=== PATIENT | female | born 1960 | race Caucasian/White ===

== ENCOUNTER 2017-03-18 20:42 | Emergency (ER) | payer SELFPAY ==
--- NOTE | 2017-03-18 21:35 | EDPHY ---
HPI/HX/ROS/PE/MDM Narrative: CHIEF COMPLAINT: Upper respiratory infection. HISTORY OF PRESENT ILLNESS: This patient is a 56 year old female arriving with her complaining of itchy watery eyes, dry cough, and congestion onset six days ago. She also reports hoarse voice. Her at bedside reports he is ill with upper respiratory complaints as well. She states has been treating her cough with Ventolin. She states she has had dry eyes for the last six months, but they have been bothering her more in the last week and she endorses crusty discharge. No fever, chills, chest pain, palpitations, vomiting, diarrhea, urinary complaints, headache, lightheadedness. REVIEW OF SYSTEMS: Aside from elements discussed in the HPI, a comprehensive 10-point review of systems was reviewed and is negative. PAST MEDICAL HISTORY: Asthma (Ventolin) SOCIAL HISTORY: Visiting daughter. Originally from [place]. VITAL SIGNS: Reviewed by me GENERAL: Well-developed, well-nourished, resting comfortably in no respiratory distress. She has a very hoarse voice. HEENT: Atraumatic. Eyes: Bilateral injection. No icterus. Mouth: moist mucous membranes. Mild pharyngeal erythema. No exudates or lesions. Neck: supple with no adenopathy. LUNGS: Coarse breath sounds but clear to auscultation bilaterally. No rhonchi, wheezes, or rales. CARDIAC: Regular rate and rhythm, no rubs, murmurs or gallops. ABDOMEN: Soft, nontender, nondistended, bowel sounds normal. BACK: No CVA tenderness. EXTREMITIES: No trauma. No edema. Range of motion is normal throughout. NEURO: Alert and oriented, grossly nonfocal. SKIN: Warm and dry, no rash. PSYCHIATRIC: Normal mentation, no agitation. Portions of this note were transcribed by a medical dir. I personally performed a history, physical exam, medical decision making, and confirmed accuracy of information the transcribed note. ED Course: This patient is a 56 year old female presenting with six day history of upper respiratory symptoms and asthma exacerbation. Physical exam reveals signs of conjunctivitis, a very hoarse voice, and clear lungs. Plan for chest x-ray, flu and strep screen. Plan to administer 60mg PO Prednisone, Ofloxacin eye drops , and Albuterol nebulizer. Chest x-ray shows mild bronchitis and airway disease, no focal pneumonia. Following the neb treatment with albuterol patient is coughing frequently. She is moving good air and has an occasional wheeze. She was treated with a DuoNeb. Plan to discharge home in good condition with prescriptions for Prednisone, ofloxacin eye drops, and Tessalon Perles, as well as instructions for further OTC treatments. Return precautions discussed. The patient and her are comfortable with this plan. MDM: Differential diagnosis for the patient's symptom complex was considered including but not limited to viral versus bacterial bronchitis, asthma, upper respiratory infection, lower respiratory infection, and bronchospasm. - Data Points Imaging Results: Imaging Impressions Chest X-Ray 03/18/17 21:14 Impression: 1. Mild bronchitis/airways disease. 2. No focal pneumonia. Imaging: I viewed and interpreted images myself Laboratory Results: 03/18/17 03/18/17 03/18/17 Unknown 21:15 21:15 Influenza A & B (PCR) NEGATIVE FOR FLU (NEGATIVE) Influenza A,B Rapid Group A Strep Screen NEGATIVE (NEGATIVE) Group A Strep DNA Pending 03/18/17 03/18/17 21:15 21:15 Influenza A & B (PCR) Influenza A,B Rapid Cancelled Group A Strep Screen Cancelled Group A Strep DNA Medications Given: Discontinued Medications Albuterol (Proventil Neb) 3 ml IH EDNOW ONE Stop: 03/18/17 21:56 Last Admin: 03/18/17 22:01 Dose: 3 ml Albuterol/Ipratropium (Duoneb) 3 ml IH EDNOW ONE Stop: 03/18/17 22:44 Last Admin: 03/18/17 22:45 Dose: 3 ml Ofloxacin (Ocuflox 0.3% Opht Drops Prepack) 1 btl TAKEHOME EDNOW ONE Stop: 03/18/17 22:26 Last Admin: 03/18/17 22:45 Dose: 1 btl Prednisone (Prednisone) 60 mg PO EDNOW ONE Stop: 03/18/17 22:26 Last Admin: 03/18/17 22:45 Dose: 60 mg General Time Seen by Provider: 03/18/17 21:21 Initial Vital Signs: Initial Vital Signs Temperature (C) 36.9 C 03/18/17 20:50 Heart Rate 77 03/18/17 20:50 Respiratory Rate 16 03/18/17 20:50 Blood Pressure 153/68 H 03/18/17 20:50 O2 Sat (%) 95 03/18/17 20:50 O2 Delivery Mode Room Air Allergies/Adverse Reactions: codeine Allergy (Verified 03/18/17 20:55) Other-Enter Comments Sulfa (Sulfonamide Antibiotics) Allergy (Verified 03/18/17 20:56) Red Man Syndrome Home Medications: Medication Instructions Recorded Amlodipine Besylate 03/18/17 Benzonatate [Tessalon Pearles (RX)] 100 mg PO TID PRN #20 cap 03/18/17 Ventolin Hfa 03/18/17 Zoloft 03/18/17 predniSONE [prednisone 10mg (RX)] 40 mg PO DAILY 3 Days 03/18/17 Departure - Departure Disposition: Home, Routine, Self-Care Clinical Impression: Asthma exacerbation Upper respiratory infection Qualifiers: URI type: acute laryngotracheitis Qualified Code(s): J04.2 - Acute laryngotracheitis Conjunctivitis Qualifiers: Conjunctivitis type: acute Acute conjunctivitis type: unspecified Laterality: bilateral Qualified Code(s): H10.33 - Unspecified acute conjunctivitis, bilateral Condition: Good Instructions: Ofloxacin (Into the eye), How to Use a Nebulizer (ED), Bronchospasm (ED) Additional Instructions: Mainstay of therapy will be to drink plenty of fluids. Please use the metered dose inhaler to help control your coughing and wheezing and shortness of breath. You may take 2-4 puffs every 3-4 hours. Please begin taking the prednisone as directed. This will be 40 mg each day for 3 days starting tomorrow evening. Please obtained Flonase nasal spray. This is available [id number]. Use as directed. You may take the Tessalon Perles as needed for cough. Please use the antibiotic eyedrops as directed. 1-2 drops in each eye every 3-4 hours for the 1st 24 hours, then 1-2 drops in each eye 4 times a day for an additional 5 days. Return to the emergency department or seek care urgently if you're symptoms are worsening despite the above treatment, if you develop shortness of breath, if you're unable to drink fluids secondary to throat pain or other issues, if you developed, vomiting, diarrhea, or other concerns. Referrals: TIM NEGRETE [Other] - As per Instructions Prescriptions: Benzonatate [Tessalon Pearles (RX)] 100 mg PO TID PRN #20 cap PRN Reason: cough predniSONE [prednisone 10mg (RX)] 40 mg PO DAILY 3 Days Report Scribed for: Kia Shell Report Scribed by: Mercedes Anthony Date of Report: 03/18/17 Time of Report: 22:21
[2017-03-18] MEDS ORDERED: ALBUTEROL 3 ML DEYVIAL IH ONE (21:55)
[2017-03-18] MEDS ORDERED: OFLOXACIN 0.3% SOLN PREPACK OPHT.BTL TAKEHOME ONE (22:25)
[2017-03-18] MEDS ORDERED: predniSONE 20 MG TAB PO ONE (22:25)
[2017-03-18] MEDS ORDERED: IPRATROPIUM/ALBUTEROL 3 ML DEYVIAL ONE (22:42)
[2017-03-18] MEDS ORDERED: IPRATROPIUM/ALBUTEROL 3 ML DEYVIAL IH ONE (22:43)
[2017-03-18 22:57] VITALS: BP 142/71; PULSE 81; RESP 18; TEMP 98.2; O2SAT 94
== END 2017-03-18 22:56 | disposition home or self-care (01) ==
DX: J45.901 Unspecified asthma with (acute) exacerbation (principal); J04.2 Acute laryngotracheitis; H10.33 Unspecified acute conjunctivitis, bilateral